=== PATIENT | male | born 1955 | race Two or more races ===

== ENCOUNTER → 2021-06-06 | Outpatient (CLI) | payer OTHER, MEDICARE ==
[2021-06-06 09:54] LABS: Basophils # (auto) 0 10 ^3/uL (0-0.2); Basophils % (auto) 0.5 % (0.0-2.0); Eosinophils # (auto) 0.1 10 ^3/uL (0-0.8); Eosinophils % (auto) 1.4 % (0.0-7.0); Hematocrit 42.6 % (41.0-53.0); Hemoglobin 14.6 g/dL (13.5-17.5); Lymphocytes % (auto) 31.7 % (10.0-50.0); Mean Corpuscular Hemoglobin 32.7 pg (28.0-32.0); Mean Corpuscular Hgb Conc. 34.2 g/dL (32.0-36.0); Mean Corpuscular Volume 95.8 fL (80.0-100.0); Monocytes # (auto) 0.5 10 ^3/uL (0-1.3); Monocytes % (auto) 7.9 % (0.0-12.0); Neutrophils # (auto) 3.7 10 ^3/uL (1.6-8.6); Neutrophils % (auto) 58.5 % (37.0-80.0); Red Blood Cells 4.45 10^6/uL (4.5-5.90); Red Cell Distribution Width 13.5 % (11.8-14.3); White Blood Cell 6.3 10^3/uL (4.4-10.8)
[2021-06-06 10:13] LABS: Potassium 4.2 mmol/L (3.5-5.1)
[2021-06-06 10:23] LABS: Urine Bacteria NONE SEEN /hpf (None Seen); Urine Blood Negative /uL (Negative); Urine Mucus FEW (None Seen); Urine Specific Gravity 1.018 (1.001-1.035); Urine WBC 1 /hpf (0 - 3)
[2021-06-06 10:38] LABS: BUN/Creatinine Ratio 18.4; Bilirubin, Total 0.9 mg/dL (0.2-1.0); Calcium 9.1 mg/dL (8.5-10.1); Total Protein 7.7 g/dL (6.4-8.2)
[2021-06-08 12:06] LABS: IgE Mouse Urine <0.10 kU/L (Class 0)
== END | disposition home or self-care (01) ==
LOC: LAB 09:20
PROVIDERS: ATTEND Student in an Organized Health Care Education/Training Program
DX: L50.0 Allergic urticaria (principal); E11.9 Type 2 diabetes mellitus without complications; I10 Essential (primary) hypertension; N40.1 Benign prostatic hyperplasia with lower urinary tract symptoms
CPT/HCPCS: 36415; 80053; 80061; 81001; 82043; 82785; 83036; 84153; 84443; 85025

== ENCOUNTER → 2022-09-19 | Day surgery (SDC) | payer OTHER, MEDICAID ==
[2022-09-15 12:00] LABS: Basophils # (auto) 0 10 ^3/uL (0-0.2); Basophils % (auto) 0.6 % (0.0-2.0); Eosinophils # (auto) 0.1 10 ^3/uL (0-0.8); Eosinophils % (auto) 1.8 % (0.0-7.0); Hematocrit 40.4 % (41.0-53.0); Hemoglobin 13.7 g/dL (13.5-17.5); Lymphocytes # (auto) 2.2 10 ^3/uL (0.4-5.4); Lymphocytes % (auto) 38.6 % (10.0-50.0); Mean Corpuscular Hemoglobin 32.4 pg (28.0-32.0); Mean Corpuscular Volume 95.1 fL (80.0-100.0); Monocytes # (auto) 0.6 10 ^3/uL (0-1.3); Monocytes % (auto) 11.3 % (0.0-12.0); Neutrophils # (auto) 2.7 10 ^3/uL (1.6-8.6); Neutrophils % (auto) 47.7 % (37.0-80.0); Nucleated Red Blood Cells % 0.1 %; Red Blood Cells 4.24 10^6/uL (4.5-5.90); Red Cell Distribution Width 13.8 % (11.8-14.3); White Blood Cell 5.6 10^3/uL (4.4-10.8)
[2022-09-15 12:18] LABS: Partial Thromboplastin Time 28.3 sec (24.6-33.4)
[2022-09-15 12:26] LABS: Calcium 8.7 mg/dL (8.5-10.1); Potassium 4.3 mmol/L (3.5-5.1)
[2022-09-15 12:32] LABS: BUN/Creatinine Ratio 24.5; Bilirubin, Total 0.3 mg/dL (0.2-1.0); Total Protein 7.3 g/dL (6.4-8.2)
[~2022-09-19] VITALS: Ht 162.6 cm; Wt 74.8 kg
[~2022-09-19] MED LIST: CETI10TA2 PO; FINA5TAB4 PO; LISI20TA28 PO; MIDAZOLAM HCL 2MG/2ML 2ml VIAL (1mg/ml) ONE
[2022-09-19] MEDS: fentaNYL CITRATE 100 MCG/2 ML VL ONE ×2 (11:04→11:08)
[2022-09-19] MEDS: diphenhdrAMINE HCL 50 MG/1 ML VL ONE ×2 (11:04→11:07)
[2022-09-19 11:54] VITALS: BP 142/83
== END | disposition home or self-care (01) ==
LOC: GI 09:34
PROVIDERS: ATTEND Internal Medicine Gastroenterology
DX: Z12.11 Encounter for screening for malignant neoplasm of colon (principal); K64.0 First degree hemorrhoids; I10 Essential (primary) hypertension; N40.0 Benign prostatic hyperplasia without lower urinary tract symptoms; Z79.899 Other long term (current) drug therapy; Z20.822 Contact with and (suspected) exposure to COVID-19
CPT/HCPCS: 36415; 45378; 80053; 85025; 85610; 85730; J1200; J2250; J3010; J7030; U0003; 99152

== ENCOUNTER → 2022-09-26 | Outpatient (CLI) | payer OTHER, MEDICAID ==
[~2022-09-26] MED LIST changes: -MIDAZOLAM HCL 2MG/2ML 2ml VIAL (1mg/ml) ONE
[2022-09-26 10:36] LABS: Basophils # (auto) 0 10 ^3/uL (0-0.2); Basophils % (auto) 0.5 % (0.0-2.0); Eosinophils # (auto) 0.1 10 ^3/uL (0-0.8); Eosinophils % (auto) 1.5 % (0.0-7.0); Hematocrit 40.7 % (41.0-53.0); Hemoglobin 14.3 g/dL (13.5-17.5); Lymphocytes # (auto) 2.1 10 ^3/uL (0.4-5.4); Lymphocytes % (auto) 38.7 % (10.0-50.0); Mean Corpuscular Hemoglobin 33.3 pg (28.0-32.0); Mean Corpuscular Volume 95.2 fL (80.0-100.0); Monocytes # (auto) 0.5 10 ^3/uL (0-1.3); Monocytes % (auto) 9.2 % (0.0-12.0); Neutrophils # (auto) 2.8 10 ^3/uL (1.6-8.6); Neutrophils % (auto) 50.1 % (37.0-80.0); Nucleated Red Blood Cells % 0.1 %; Red Blood Cells 4.28 10^6/uL (4.5-5.90); Red Cell Distribution Width 14.2 % (11.8-14.3); White Blood Cell 5.5 10^3/uL (4.4-10.8)
[2022-09-26 10:42] LABS: Urine Bacteria NONE SEEN /hpf (None Seen); Urine Blood Negative /uL (Negative); Urine Specific Gravity 1.017 (1.001-1.035); Urine WBC <1 /hpf (0 - 3)
[2022-09-26 10:56] LABS: Potassium 4.4 mmol/L (3.5-5.1)
[2022-09-26 15:40] LABS: Albumin 4.1 g/dL (3.4-5.0); BUN/Creatinine Ratio 16.5; Bilirubin, Total 0.6 mg/dL (0.2-1.0); Calcium 8.9 mg/dL (8.5-10.1); Total Protein 7.4 g/dL (6.4-8.2)
== END | disposition home or self-care (01) ==
LOC: LAB 09:36
PROVIDERS: ATTEND Student in an Organized Health Care Education/Training Program
DX: E11.9 Type 2 diabetes mellitus without complications (principal); I10 Essential (primary) hypertension
CPT/HCPCS: 36415; 80053; 80061; 81001; 83036; 85025

== ENCOUNTER → 2023-03-26 | Outpatient (CLI) | payer OTHER, MEDICAID ==
[~2023-03-26] MED LIST changes: -LISI20TA28 PO; +LISI20TA56 PO
[2023-03-26 10:06] LABS: Basophils # (auto) 0 10 ^3/uL (0-0.2); Basophils % (auto) 0.6 % (0.0-2.0); Eosinophils # (auto) 0.1 10 ^3/uL (0-0.8); Eosinophils % (auto) 1.8 % (0.0-7.0); Hematocrit 41.2 % (41.0-53.0); Hemoglobin 13.9 g/dL (13.5-17.5); Lymphocytes # (auto) 2.3 10 ^3/uL (0.4-5.4); Lymphocytes % (auto) 35.3 % (10.0-50.0); Mean Corpuscular Hemoglobin 32.5 pg (28.0-32.0); Mean Corpuscular Hgb Conc. 33.8 g/dL (32.0-36.0); Mean Corpuscular Volume 96.1 fL (80.0-100.0); Monocytes # (auto) 0.6 10 ^3/uL (0-1.3); Monocytes % (auto) 9.2 % (0.0-12.0); Neutrophils # (auto) 3.4 10 ^3/uL (1.6-8.6); Neutrophils % (auto) 53.1 % (37.0-80.0); Nucleated Red Blood Cells % 0.1 %; Red Blood Cells 4.29 10^6/uL (4.5-5.90); Red Cell Distribution Width 13.8 % (11.8-14.3); White Blood Cell 6.4 10^3/uL (4.4-10.8)
[2023-03-26 10:24] LABS: BUN/Creatinine Ratio 23.8 (10.0-20.0); Calcium 9.1 mg/dL (8.5-10.1); Potassium 4.4 mmol/L (3.5-5.1)
[2023-03-26 11:15] LABS: Urine Bacteria NONE SEEN /hpf (None Seen); Urine Blood Negative /uL (Negative); Urine Clarity Clear (Clear); Urine Color Yellow (Yellow); Urine Protein, UAD Negative (Negative); Urine Specific Gravity 1.022 (1.001-1.035); Urine Urobilinogen Normal (Negative); Urine WBC <1 /hpf (0 - 3); Urine pH 5.5 (5.0-8.0)
== END | disposition home or self-care (01) ==
LOC: LAB 09:40
PROVIDERS: ATTEND Student in an Organized Health Care Education/Training Program
DX: E11.9 Type 2 diabetes mellitus without complications (principal); I10 Essential (primary) hypertension
CPT/HCPCS: 36415; 80048; 81001; 83036; 85025

== ENCOUNTER → 2023-04-09 | Outpatient (CLI) | payer OTHER, MEDICAID | END | disposition home or self-care (01) | LOC: LAB 12:06 | DX: A04.8 Other specified bacterial intestinal infections (principal); B96.81 Helicobacter pylori [H. pylori] as the cause of diseases classified elsewhere | CPT/HCPCS: 82274 ==

== ENCOUNTER → 2023-06-26 | Outpatient (CLI) | payer OTHER, MEDICAID ==
[2023-06-26 11:42] LABS: Alanine Aminotransferase 48 U/L (7-40); Alkaline Phosphatase 38 U/L (46-116); Anion Gap 7 (5-15); BUN/Creatinine Ratio 11.7 (10.0-20.0); Blood Urea Nitrogen 11 mg/dL (9-23); Calcium 9.4 mg/dL (8.5-10.1); Carbon Dioxide 28 mmol/L (20-30); Chloride 104 mmol/L (98-107); Glucose 103 mg/dL (74-106); Potassium 4.2 mmol/L (3.5-5.1); Sodium 139 mmol/L (136-145); Triglycerides 157 mg/dL (< 150)
[2023-06-26 11:43] LABS: Albumin 4.5 g/dL (3.2-4.8); LDL Cholesterol 69 mg/dL (< 100)
[2023-06-26 11:44] LABS: Aspartate Aminotransferase 26 U/L (13-40); Bilirubin, Total 0.9 mg/dL (0.2-1.0); Cholesterol 128 mg/dL (< 200); HDL Cholesterol 38 mg/dL (40-59)
== END | disposition home or self-care (01) ==
LOC: LAB 09:42
DX: E11.9 Type 2 diabetes mellitus without complications (principal); I10 Essential (primary) hypertension; D64.9 Anemia, unspecified
CPT/HCPCS: 36415; 80053; 80061; 82607; 83036

== ENCOUNTER → 2023-10-22 | Outpatient (CLI) | payer OTHER, MEDICAID ==
[2023-10-22 08:46] LABS: Urine WBC None Seen /hpf (0 - 3)
[2023-10-22 09:19] LABS: Basophils # (auto) 0 10 ^3/uL (0-0.2); Basophils % (auto) 0.4 % (0.0-2.0); Eosinophils # (auto) 0.1 10 ^3/uL (0-0.8); Eosinophils % (auto) 1.3 % (0.0-7.0); Hematocrit 41.8 % (41.0-53.0); Hemoglobin 14.1 g/dL (13.5-17.5); Lymphocytes # (auto) 2.1 10 ^3/uL (0.4-5.4); Lymphocytes % (auto) 35.9 % (10.0-50.0); Mean Corpuscular Hemoglobin 32.3 pg (28.0-32.0); Mean Corpuscular Hgb Conc. 33.7 g/dL (32.0-36.0); Mean Corpuscular Volume 95.9 fL (80.0-100.0); Monocytes # (auto) 0.6 10 ^3/uL (0-1.3); Monocytes % (auto) 9.5 % (0.0-12.0); Neutrophils # (auto) 3.1 10 ^3/uL (1.6-8.6); Neutrophils % (auto) 52.9 % (37.0-80.0); Red Blood Cells 4.36 10^6/uL (4.5-5.90); Red Cell Distribution Width 13.5 % (11.8-14.3); White Blood Cell 5.8 10^3/uL (4.4-10.8)
[2023-10-22 09:33] LABS: Urine Bacteria NONE SEEN /hpf (None Seen); Urine Blood Negative /uL (Negative); Urine Clarity Clear (Clear); Urine Color Colorless (Yellow); Urine Protein, UAD Negative (Negative); Urine Specific Gravity 1.019 (1.001-1.035); Urine Urobilinogen Normal (Negative); Urine pH 5.5 (5.0-8.0)
[2023-10-22 10:00] LABS: Alanine Aminotransferase 53 U/L (7-40); Albumin 4.6 g/dL (3.2-4.8); Alkaline Phosphatase 39 U/L (46-116); Anion Gap 4 (5-15); Aspartate Aminotransferase 26 U/L (13-40); BUN/Creatinine Ratio 16.5 (10.0-20.0); Bilirubin, Total 0.8 mg/dL (0.2-1.0); Blood Urea Nitrogen 16 mg/dL (9-23); Calcium 9.5 mg/dL (8.5-10.1); Carbon Dioxide 29 mmol/L (20-30); Chloride 105 mmol/L (98-107); Cholesterol 129 mg/dL (< 200); Creatinine, Urine 105.82 mg/dL (30.0-125.0); Glucose 114 mg/dL (74-106); HDL Cholesterol 41 mg/dL (40-59); LDL Cholesterol 72 mg/dL (< 100); Potassium 4.5 mmol/L (3.5-5.1); Sodium 138 mmol/L (136-145); Triglycerides 105 mg/dL (< 150)
[2023-10-22 10:02] LABS: Micro Albumin < 3.0 mg/L (<30.0)
== END | disposition home or self-care (01) ==
LOC: LAB 08:30
PROVIDERS: ATTEND Student in an Organized Health Care Education/Training Program
DX: I10 Essential (primary) hypertension (principal); E11.9 Type 2 diabetes mellitus without complications; N40.0 Benign prostatic hyperplasia without lower urinary tract symptoms
CPT/HCPCS: 36415; 80053; 80061; 81001; 82043; 82570; 83036; 84153; 85025

== ENCOUNTER → 2024-07-14 | Outpatient (CLI) | payer OTHER, MEDICAID ==
[2024-07-14 09:09] LABS: Urine Bacteria None Seen /hpf (None Seen)
[2024-07-14 09:39] LABS: Urine Blood Negative /uL (Negative); Urine Clarity Clear (Clear); Urine Color Light-Yellow (Yellow); Urine Protein, UAD Negative (Negative); Urine Specific Gravity 1.015 (1.001-1.035); Urine Urobilinogen Normal (Negative); Urine WBC 1 /hpf (0 - 3)
[2024-07-14 09:58] LABS: Basophils # (auto) 0 10 ^3/uL (0-0.2); Basophils % (auto) 0.6 % (0.0-2.0); Eosinophils # (auto) 0.1 10 ^3/uL (0-0.8); Eosinophils % (auto) 1.6 % (0.0-7.0); Hematocrit 41.2 % (41.0-53.0); Hemoglobin 14.1 g/dL (13.5-17.5); Lymphocytes % (auto) 34.9 % (10.0-50.0); Mean Corpuscular Hemoglobin 33.1 pg (28.0-32.0); Mean Corpuscular Hgb Conc. 34.2 g/dL (32.0-36.0); Mean Corpuscular Volume 96.9 fL (80.0-100.0); Monocytes # (auto) 0.5 10 ^3/uL (0-1.3); Monocytes % (auto) 9.3 % (0.0-12.0); Neutrophils # (auto) 3.1 10 ^3/uL (1.6-8.6); Neutrophils % (auto) 53.6 % (37.0-80.0); Platelet Count (auto) 133 10^3/uL (140-450); Red Blood Cells 4.26 10^6/uL (4.5-5.90); Red Cell Distribution Width 13.6 % (11.8-14.3); White Blood Cell 5.8 10^3/uL (4.4-10.8)
[2024-07-14 10:25] LABS: Alanine Aminotransferase 35 U/L (7-40); Albumin 4.4 g/dL (3.2-4.8); Alkaline Phosphatase 38 U/L (46-116); Anion Gap 5 (5-15); Aspartate Aminotransferase 16 U/L (13-40); BUN/Creatinine Ratio 17.4 (10.0-20.0); Blood Urea Nitrogen 16 mg/dL (9-23); Calcium 9.9 mg/dL (8.7-10.4); Carbon Dioxide 27 mmol/L (20-31); Chloride 105 mmol/L (98-107); Glucose 109 mg/dL (74-106); Potassium 4.5 mmol/L (3.5-5.1); Sodium 137 mmol/L (136-145)
[2024-07-14 10:26] LABS: Bilirubin, Total 0.8 mg/dL (0.2-1.0); Total Protein 6.9 g/dL (5.7-8.2)
== END | disposition home or self-care (01) ==
LOC: LAB 08:59
PROVIDERS: ATTEND Student in an Organized Health Care Education/Training Program
DX: I10 Essential (primary) hypertension (principal); E11.9 Type 2 diabetes mellitus without complications
CPT/HCPCS: 36415; 80053; 81001; 83036; 85025

== ENCOUNTER → 2024-11-14 | Outpatient (CLI) | payer OTHER, MEDICAID ==
[2024-11-14 08:43] LABS: Urine Bacteria None Seen /hpf (None Seen)
[2024-11-14 09:49] LABS: Urine Blood Negative /uL (Negative); Urine Clarity Clear (Clear); Urine Color Colorless (Yellow); Urine Protein, UAD Negative (Negative); Urine Specific Gravity 1.009 (1.001-1.035); Urine Squamous Epithelial Cell None Seen /hpf (<5); Urine Urobilinogen Normal (Negative); Urine pH 6.5 (5.0-9.0)
[2024-11-14 09:51] LABS: Basophils # (auto) 0 10 ^3/uL (0-0.2); Basophils % (auto) 0.3 % (0.0-2.0); Eosinophils # (auto) 0.1 10 ^3/uL (0-0.8); Eosinophils % (auto) 1.6 % (0.0-7.0); Hematocrit 40.1 % (41.0-53.0); Hemoglobin 13.9 g/dL (13.5-17.5); Lymphocytes % (auto) 32.4 % (10.0-50.0); Mean Corpuscular Hemoglobin 33.4 pg (28.0-32.0); Mean Corpuscular Hgb Conc. 34.6 g/dL (32.0-36.0); Mean Corpuscular Volume 96.5 fL (80.0-100.0); Monocytes # (auto) 0.6 10 ^3/uL (0-1.3); Monocytes % (auto) 9.6 % (0.0-12.0); Neutrophils # (auto) 3.4 10 ^3/uL (1.6-8.6); Neutrophils % (auto) 56.1 % (37.0-80.0); Nucleated Red Blood Cells % 0.1 %; Platelet Count (auto) 133 10^3/uL (140-450); Red Blood Cells 4.16 10^6/uL (4.5-5.90); Red Cell Distribution Width 13.3 % (11.8-14.3); White Blood Cell 6.1 10^3/uL (4.4-10.8)
[2024-11-14 09:58] LABS: Urine WBC < 1 /HPF (0-3)
[2024-11-14 10:54] LABS: Creatinine, Urine 45.86 mg/dL (30.0-125.0)
[2024-11-14 11:05] LABS: Micro Albumin < 3.0 mg/L (<30.0)
[2024-11-14 11:21] LABS: Alanine Aminotransferase 19 U/L (7-40); Albumin 4.6 g/dL (3.2-4.8); Anion Gap 9 (5-15); Aspartate Aminotransferase 17 U/L (13-40); BUN/Creatinine Ratio 15.1 (10.0-20.0); Blood Urea Nitrogen 14 mg/dL (9-23); Calcium 9.6 mg/dL (8.7-10.4); Carbon Dioxide 26 mmol/L (20-31); Chloride 103 mmol/L (98-107); Cholesterol 130 mg/dL (< 200); Glucose 105 mg/dL (74-106); HDL Cholesterol 41 mg/dL (40-59); LDL Cholesterol 71 mg/dL (< 100); Potassium 4.6 mmol/L (3.5-5.1); Sodium 138 mmol/L (136-145); Total Protein 7.1 g/dL (5.7-8.2); Triglycerides 104 mg/dL (< 150)
[2024-11-14 11:22] LABS: Alkaline Phosphatase 34 U/L (46-116); Bilirubin, Total 0.8 mg/dL (0.2-1.0)
== END | disposition home or self-care (01) ==
LOC: LAB 08:24
PROVIDERS: ATTEND Student in an Organized Health Care Education/Training Program
DX: N40.0 Benign prostatic hyperplasia without lower urinary tract symptoms (principal); I10 Essential (primary) hypertension; E11.9 Type 2 diabetes mellitus without complications
CPT/HCPCS: 36415; 80053; 80061; 81001; 82043; 82570; 83036; 84153; 84443; 85025

== ENCOUNTER 2025-05-07 08:26 | Outpatient (CLI) | payer OTHER, MEDICAID ==
[2025-05-07 08:56] LABS: Hematocrit 40.2 % (41.0-53.0); Hemoglobin 13.8 g/dL (13.5-17.5); Mean Corpuscular Hemoglobin 32.4 pg (28.0-32.0); Mean Corpuscular Volume 94.1 fL (80.0-100.0); Nucleated Red Blood Cells % 0.2 %
[2025-05-07 09:16] LABS: Alanine Aminotransferase 23 U/L (7-40); Albumin 4.5 g/dL (3.2-4.8); Anion Gap 7 (5-15); BUN/Creatinine Ratio 18.0 (10.0-20.0); Bilirubin, Total 0.7 mg/dL (0.2-1.0); Blood Urea Nitrogen 18 mg/dL (9-23); Calcium 9.4 mg/dL (8.7-10.4); Carbon Dioxide 27 mmol/L (20-31); Chloride 103 mmol/L (98-107); Cholesterol 134 mg/dL (< 200); Potassium 4.2 mmol/L (3.5-5.1); Sodium 137 mmol/L (136-145); Total Protein 7.5 g/dL (5.7-8.2); Triglycerides 134 mg/dL (< 150)
[2025-05-07 09:18] LABS: Alkaline Phosphatase 41 U/L (46-116); Glucose 119 mg/dL (74-106); HDL Cholesterol 38 mg/dL (40-59)
== END 2025-05-07 17:00 | disposition home or self-care (01) ==
LOC: LAB 08:26
PROVIDERS: ATTEND Licensed Practical Nurse
DX: I10 Essential (primary) hypertension (principal); N40.0 Benign prostatic hyperplasia without lower urinary tract symptoms; E55.9 Vitamin D deficiency, unspecified; R73.03 Prediabetes; Z13.6 Encounter for screening for cardiovascular disorders
CPT/HCPCS: 36415; 80053; 80061; 82043; 82306; 83036; 85025